=== PATIENT | female | born 1985 | race Caucasian/White ===

== ENCOUNTER 2024-07-15 20:50 | Emergency (ER) | payer MEDICAID, SELFPAY ==
[2024-07-15 21:04] VITALS: BP 104/64; PULSE 89; RESP 16; TEMP 37.1; O2SAT 98; BMI 16.6
--- NOTE | 2024-07-15 21:13 | ECG_ITS ---
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 Measurements Intervals [place] Rate: 81 P: 74 [place]: 126 QRS: 83 QRSD: 78 T: 38 QT: 346 QTc: 403 Interpretive Statements SINUS RHYTHM NONSPECIFIC T-WAVE ABNORMALITY No previous ECG available for comparison Electronically Signed On 07-17-2024 20:09:25 [employer] by Atif Cordova M.D. [email or web address]
== END 2024-07-15 22:21 | disposition left against medical advice (07) ==
PROVIDERS: Emergency Provider Family Medicine
DX: Z53.21 Procedure and treatment not carried out due to patient leaving prior to being seen by health care provider (principal)
CPT/HCPCS: 93005